=== PATIENT | female | born 1995 | race Caucasian/White ===

== ENCOUNTER 2023-07-23 17:15 | Outpatient (CLI) | payer OTHER, SELFPAY | END 2023-07-23 17:16 | disposition home or self-care (01) | LOC: LKVREF 17:15 | PROVIDERS: Visit Provider Emergency Medicine | DX: Z00.00 Encounter for general adult medical examination without abnormal findings (principal); Z86.39 Personal history of other endocrine, nutritional and metabolic disease | CPT/HCPCS: 84439; 84443 ==

== ENCOUNTER 2023-10-23 07:59 | Outpatient (CLI) | payer OTHER, SELFPAY | END 2023-10-23 08:00 | disposition home or self-care (01) | LOC: NFLDREF 10-25 06:20 | PROVIDERS: PCP Emergency Medicine; Visit Provider Emergency Medicine | DX: Z86.39 Personal history of other endocrine, nutritional and metabolic disease (principal) | CPT/HCPCS: 84439; 84443 ==

== ENCOUNTER 2024-01-28 10:57 | Outpatient (CLI) | payer OTHER, SELFPAY | END 2024-01-28 10:58 | disposition home or self-care (01) | LOC: NFLDREF 01-29 06:55 | PROVIDERS: PCP Emergency Medicine; Referring Provider Emergency Medicine; Visit Provider Emergency Medicine | DX: Z86.39 Personal history of other endocrine, nutritional and metabolic disease (principal); Z13.29 Encounter for screening for other suspected endocrine disorder | CPT/HCPCS: 84443 ==

== ENCOUNTER 2024-05-21 10:57 | Outpatient (CLI) | payer OTHER, SELFPAY | END 2024-05-21 10:58 | disposition home or self-care (01) | PROVIDERS: PCP Emergency Medicine; Visit Provider Emergency Medicine | DX: R11.0 Nausea (principal); R82.90 Unspecified abnormal findings in urine; Z86.39 Personal history of other endocrine, nutritional and metabolic disease | CPT/HCPCS: 80053; 84439; 84443; 86140; 87086 ==

== ENCOUNTER 2024-06-25 10:16 | Outpatient (CLI) | payer OTHER, SELFPAY | END 2024-06-25 10:17 | disposition home or self-care (01) | PROVIDERS: PCP Emergency Medicine; Visit Provider Emergency Medicine | DX: Z86.39 Personal history of other endocrine, nutritional and metabolic disease (principal); Z82.69 Family history of other diseases of the musculoskeletal system and connective tissue; Z13.220 Encounter for screening for lipoid disorders; Z13.21 Encounter for screening for nutritional disorder | CPT/HCPCS: 80061; 82306; 82947; 86812 ==

== ENCOUNTER 2024-12-09 07:59 | Outpatient (CLI) | payer OTHER, SELFPAY | END 2024-12-09 08:00 | disposition home or self-care (01) | LOC: NFLDREF 18:43 | PROVIDERS: PCP Emergency Medicine; Referring Provider Emergency Medicine; Visit Provider Emergency Medicine | DX: Z86.39 Personal history of other endocrine, nutritional and metabolic disease (principal) | CPT/HCPCS: 84443 ==

== ENCOUNTER 2025-07-13 09:46 | Outpatient (CLI) | payer OTHER, SELFPAY | END 2025-07-13 09:47 | disposition home or self-care (01) | PROVIDERS: Visit Provider Family Medicine | DX: E03.9 Hypothyroidism, unspecified (principal); E67.3 Hypervitaminosis D; R11.0 Nausea; R55 Syncope and collapse; Z00.00 Encounter for general adult medical examination without abnormal findings; Z76.89 Persons encountering health services in other specified circumstances; Z11.59 Encounter for screening for other viral diseases | CPT/HCPCS: 80053; 80061; 82306; 84443; 86038; 86140; 86803; 87491; 87591 ==

== ENCOUNTER 2025-07-14 08:07 | Outpatient (CLI) | payer OTHER, SELFPAY | END 2025-07-14 08:08 | disposition home or self-care (01) | LOC: NFLDREF 07-15 18:47 | PROVIDERS: Visit Provider Family Medicine | DX: N94.10 Unspecified dyspareunia (principal) | CPT/HCPCS: 87491; 87591 ==